=== PATIENT | male | born 1975 | race Caucasian/White ===

== ENCOUNTER 2016-09-21 08:34 | Emergency (ER) | payer MEDICAID, OTHER ==
[~2016-09-21] VITALS: Ht 162.6 cm; Wt 94.0 kg
[~2016-09-21 08:34] MED LIST: Z.0.NO CURRENT MEDS
[2016-09-21 08:37] VITALS: BP 149/95; PULSE 91; RESP 18; TEMP 98.4; O2SAT 96
--- NOTE | 2016-09-21 09:04 | PD ---
HPI Chief Complaint: ENT Complaint Time Seen by Provider: 09:03 Travel History International Travel<30 days: No Contact w/Intl Traveler<30days: No Traveled to known affect area: No History of Present Illness HPI Patient is a 41-year-old male presents emergency department for evaluation of cough and congestion for the past 2 weeks. Patient states he came in today because when he woke up he felt some gagging him back to his throat and looked in the mirror and found something swollen in that his throat. Denies any fever denies any difficulty swallowing denies any blood in the emesis. Denies any sputum production. Symptoms been gradually worsening. PFSH Past Medical History Medical History: Denies Significant Hx Tetanus Vaccination: Unknown Influenza Vaccination: No Past Surgical History Abdominal Surgery: Yes (HERNIORRHAPHY) Ear Surgery: Yes (5 OPERATIONS TO EARS) Social History Alcohol Use: No Tobacco Use: No Substance Use: No Allergies-Medications (Allergen,Severity, Reaction): Coded Allergies: Ceclor (Unverified Allergy, Intermediate, Rash, 09/21/16) RAsh on arms Reported Meds & Prescriptions Reported Meds & Active Scripts Active Azithromycin 250 Mg Tab 250 Mg PO DIRECTED Take 2 tabs (500 mg) on day 1 then 1 tab daily x 4 days. Prednisone 20 Mg Tab 60 Mg PO DAILY 7 Days Review of Systems Except as stated in HPI: all other systems reviewed are Neg (GENERAL: Well- nourished, well-developed patient.) Physical Exam Narrative GENERAL: Well-nourished, well-developed patient. Appears well and in no distress. SKIN: Focused skin assessment warm/dry. HEAD: Normocephalic. EYES: No scleral icterus. No injection or drainage. ENT: Oropharynx shows no erythema, there is some edema of the uvula which is isolated consistent with uvulitis. Tonsils normal, TMs clear bilaterally. NECK: Supple, trachea midline. No JVD or lymphadenopathy. CARDIOVASCULAR: Regular rate and rhythm without murmurs, gallops, or rubs. RESPIRATORY: Breath sounds equal bilaterally. No accessory muscle use. GASTROINTESTINAL: Abdomen soft, non-tender, nondistended. MUSCULOSKELETAL: No cyanosis, or edema. BACK: Nontender without obvious deformity. No CVA tenderness. Data Data Last Documented VS Vital Signs Date Time Temp Pulse Resp B/P Pulse Ox O2 Delivery O2 Flow Rate FiO2 09/21/16 10:07 84 18 132/86 98 21 09/21/16 08:37 98.4 Orders Chest, Pa & Lat (09/21/16 ) MDM Medical Decision Making Medical Screen Exam Complete: Yes Emergency Medical Condition: Yes Differential Diagnosis URI, pneumonia, cellulitis, tonsillitis Narrative Course Patient was roomed in the emergency department, appears well, has cellulitis on examination but otherwise appears well. Chest x-ray was negative. Given the duration of his upper respiratory symptoms for [address] on empiric azithromycin. Steroids for symptomatic control of uvular swelling. Stable for discharge. Diagnosis Primary Impression: URI (upper respiratory infection) Qualified Code: J06.9 - Upper respiratory tract infection, unspecified type Additional Impression: Uvulitis Med/Other Pt SpecificInfo: Prescription(s) given Scripts Azithromycin 250 Mg [id number] Mg PO DIRECTED #6 TAB Ref 0 Take 2 tabs (500 mg) on day 1 then 1 tab daily x 4 days. Prov:Danielito Anaya MD 09/21/16 Prednisone 20 Mg Tab60 Mg PO DAILY 7 Days Ref 0 Prov:Danielito Anaya MD 09/21/16 Disposition: 01 DISCHARGE HOME Condition: Stable Danielito Anaya MD Sep 21, 2016 09:04
--- NOTE | 2016-09-21 09:29 | RADRPT ---
EXAM DATE/TIME: 09/21/2016 09:08 [facility] COMPARISON: No previous studies available for comparison. INDICATIONS : Cough and swollen throat MEDICAL HISTORY : None. SURGICAL HISTORY : None. ENCOUNTER: Initial ACUITY: 2 weeks PAIN SCORE: 0/10 LOCATION: Bilateral chest FINDINGS: Minimal peribronchial thickening and parenchymal changes are present in the left base suspicious for inflammatory process. The right lung is clear. The heart and pulmonary vascularity are normal. The p ortion of the bony skeleton visualized is unremarkable. CONCLUSION: Minimal parenchymal changes left base. Nate Adkins MD FACR on September 21, 2016 at 9:26 Board Certified Radiologist. This report was verified electronically.
[2016-09-21] MEDS ORDERED: AZIT250T3 PO (09:44)
[2016-09-21] MEDS ORDERED: PRED20 PO (09:44)
[2016-09-21 10:07] VITALS: BP 132/86
== END 2016-09-21 10:08 | disposition home or self-care (01) ==
LOC: PHEFT 08:34
DX: J06.9 Acute upper respiratory infection, unspecified (principal); K12.2 Cellulitis and abscess of mouth
CPT/HCPCS: 71020; 99284